=== PATIENT | male | born 1985 | race Caucasian/White ===

== ENCOUNTER → 2024-01-14 | Outpatient (CLI) | payer OTHER ==
--- NOTE | 2024-01-14 21:54 | US ---
EXAMINATION TYPE: US scrotum with doppler. Grayscale and color Doppler Duplex imaging performed of sherri salgado scrotum. DATE OF EXAM: 01/14/2024 COMPARISON: NONE CLINICAL INDICATION: Male, 38 years old with history of N50.812 LEFT TESTICULAR PAIN; vasectomy 9 mon ths ago, pressure sensation ever since, torsion on the left at 11yrs old EXAM MEASUREMENTS: TESTICLES: Right Testicle: 4.4 x 2.7 x 2.2cm Left Testicle: 3.8 x 3.3 x 2.3cm EPIDIDYMIS HEAD: Right Epididymis: 1.1 cm - cyst 0.5 x 0.6 x 0.7cm Left Epididymis: 0.5 cm - cyst 0.4 x 0.3 x 0.3cm Doppler performed to assess for testicular vascularity; good bilateral color flow and waveforms are s een. There is no evidence of testicular torsion. Presence of hydroceles: mild on the left Presence of varicoceles: mild medial right and moderate lateral left IMPRESSION: 1. Epididymal cysts. 2. Mild hydroceles greater on the left
== END | disposition home or self-care (01) ==
LOC: RADUSWWP 14:36
PROVIDERS: ATTEND Family Medicine
DX: N43.3 Hydrocele, unspecified (principal); N50.3 Cyst of epididymis; N50.812 Left testicular pain
CPT/HCPCS: 76870; 93975